=== PATIENT | female | born 1950 | race Caucasian/White ===

== ENCOUNTER 2024-11-25 08:02 | Outpatient (RCR) | payer MEDICARE, BC, SELFPAY | END 2024-11-25 09:29 | disposition home or self-care (01) | LOC: HO.PT 08:02 | PROVIDERS: PCP Internal Medicine; Visit Provider Internal Medicine | DX: M54.2 Cervicalgia (principal); G89.4 Chronic pain syndrome | CPT/HCPCS: 97110; 97140; 97161 ==